=== PATIENT | male | born 1975 | race Caucasian/White ===

== ENCOUNTER → 2024-03-04 09:57 | Outpatient (REF) | payer OTHER, SELFPAY ==
--- NOTE | 2024-03-04 10:15 | CARDSERVLU ---
Echocardiogram with Lumason completed after protocol screening completed. Allergies verified.
Patent IV site: __left AC___
IV site flushed with 0.9% NaCl pre and post administration.
Diluted bolus method utilized to enhance visualization of ventricular james.
Total volume given: __3.0__ mL
Patient tolerated all procedures well without complications.
== END ==
LOC: RCS 09:57
PROVIDERS: ATTENDING PHYSICIAN Internal Medicine Cardiovascular Disease; FAMILY PHYSICIAN Nurse Practitioner
DX: I50.20 Unspecified systolic (congestive) heart failure (principal)
CPT/HCPCS: 93307; Q9957

== ENCOUNTER → 2025-05-11 12:56 | Outpatient (REF) | payer OTHER, SELFPAY ==
--- NOTE | 2025-05-11 13:55 | CARDSERVLU ---
Echocardiogram with Lumason completed after protocol screening completed. Allergies verified.
Patent IV site: __Left Anticubital___
IV site flushed with 0.9% NaCl pre and post administration.
Diluted bolus method utilized to enhance visualization of ventricular james.
Total volume given: _2.5___ mL
Patient tolerated all procedures well without complications.
== END ==
LOC: RCS 12:56
PROVIDERS: ATTENDING PHYSICIAN Internal Medicine Cardiovascular Disease; FAMILY PHYSICIAN Nurse Practitioner
DX: I50.20 Unspecified systolic (congestive) heart failure (principal)
CPT/HCPCS: 93306; Q9950